=== PATIENT | male | born 1995 | race Caucasian/White ===

== ENCOUNTER 2018-06-22 21:00 | Emergency (ER) | payer BC, OTHER ==
--- NOTE | 2018-06-22 21:30 | ED Physician Documentation ---
PD HPI URI - Stated complaint Stated Complaint: SOA/COUGH - Chief complaint Chief Complaint: Resp - History obtained from History obtained from: Patient - History of Present Illness Timing - onset: How many days ago (3) Timing duration: Days (3) Timing details: Abrupt onset, Still present Associated symptoms: Chills, Productive cough (green/yellow), Dyspnea. No: Fever, Hemoptysis, Chest pain, NVD, Bilateral edema Contributing factors: COPD / asthma (no formal diagnosis but has been treated with Albuterol MDI and FLovent with prior infections and uses Albuterol MDI PRN) . No: Sick contact, Travel, Immunocompromised Similar symptoms before: Diagnosis (states gets bronchitis often and has had pneumonia couple times in the past 5-6 years. Has some stomach cramps and irregular stools at times. No formal gallbladder problems.) Recently seen: Not recently seen Review of Systems Constitutional: reports: Myalgias, Fatigue. denies: Fever, Chills Nose: denies: Rhinorrhea / runny nose, Congestion Throat: reports: Sore throat Cardiac: denies: Chest pain / pressure Respiratory: reports: Dyspnea, Cough, Wheezing GI: denies: Abdominal Pain, Nausea, Vomiting, Diarrhea Skin: denies: Rash, Lesions PD PAST MEDICAL HISTORY - Past Medical History Past Medical History: Yes Respiratory: Asthma, Pneumonia HEENT: Chronic sinusitis - Past Surgical History Past Surgical History: No - Present Medications Home Medications: Ambulatory Orders Medication Instructions Recorded Confirmed Albuterol Sulf [Ventolin Hfa 2 - 3 puffs INH Q4HR PRN #1 inhaler 06/22/18 Inhaler] Benzonatate [Tessalon] 100 mg PO TID PRN #20 capsule 06/22/18 Dexamethasone [Decadron] 4 mg PO DAILY #5 tablet 06/22/18 Doxycycline Monohydrate 100 mg PO BID #14 tablet 06/22/18 - Allergies Allergies/Adverse Reactions: Allergies Allergy/AdvReac Type Severity Reaction Status Date / Time No Known Drug Allergies Allergy Verified 06/22/18 21:08 - Social History Does the pt smoke?: No Smoking Status: Never smoker Does the pt drink ETOH?: Yes Does the pt have substance abuse?: No - Immunizations Immunizations are current?: Yes PD ED PE NORMAL - Vitals Vital signs reviewed: Yes - General General: Alert and oriented X 3, No acute distress, Well developed/nourished - HEENT HEENT: Ears normal, Moist mucous membranes, Pharynx benign - Neck Neck: Supple, no meningeal sign, No adenopathy - Cardiac Cardiac: RRR, No murmur - Respiratory Respiratory: No: Clear bilaterally (no coasrse sounds but does have some en expiratory wheezing diffusely. ) - Abdomen Abdomen: Normal bowel sounds, Soft - Derm Derm: Normal color, Warm and dry, No rash - Extremities Extremities: No edema, No calf tenderness / cord - Neuro Neuro: Alert and oriented X 3, No motor deficit, Normal speech Results - Vitals Vitals: Oxygen O2 Source Room air PD MEDICAL DECISION MAKING - ED course Complexity details: considered differential (symptoms do sound c/w bacterial bronchitis - no URI symptoms generally and cough with green sputum, wheezing, malaise. Has ? asthma and gets bronchitis/pneumonia often. No wheezing nor limitation of activities when well/usually. Some stomach cramps and irregular stools often. But symptoms not necessarily consistent enough to eval for CF or such. ), d/w patient - Sepsis Event Vital Signs: Oxygen O2 Source Room air Departure - Departure Disposition: 01 Home, Self Care Clinical Impression: Acute bronchitis Qualifiers: Bronchitis organism: unspecified organism Qualified Code(s): J20.9 - Acute bronchitis, unspecified Condition: Stable Record reviewed to determine appropriate education?: Yes Instructions: ED Upper Resp Infec Abx Tx Prescriptions: Albuterol Sulf [Ventolin Hfa Inhaler] 2 - 3 puffs INH Q4HR PRN #1 inhaler PRN Reason: Shortness Of Air/Wheezing Benzonatate [Tessalon] 100 mg PO TID PRN #20 capsule PRN Reason: Cough Dexamethasone [Decadron] 4 mg PO DAILY #5 tablet Doxycycline Monohydrate 100 mg PO BID #14 tablet Comments: Drink lots of fluids. Tylenol or ibuprofen if needed for fevers or pains. Use albuterol inhaler 2 puffs 3 puffs 4 times a day to help with breathing and less cough and wheeze. Decadron steroid daily for 5 more days to help reduce bronchial inflammation. Doxycycline antibiotic twice daily for a week for the presumed bacterial infection given your symptoms. Use Tessalon or cough medicine if needed. Recheck if not improving over the next several days to week. The cough itself may persist for couple weeks even after you are feeling better. Discharge Date/Time: 06/22/18 22:26
[2018-06-22] MEDS ORDERED: ALBUTEROL NEB 2.5 MG/3 ML INH STA (21:46)
[2018-06-22] MEDS ORDERED: DEXAMETHASONE 10 MG/ML VIAL PO STA (21:46)
[2018-06-22] MEDS ORDERED: BENZONATATE 100 MG CAPSULE PO STA (21:46)
[2018-06-22] MEDS ORDERED: DOXYCYCLINE 100 MG TABLET PO STA (21:46)
[2018-06-22 22:28] VITALS: BP 135/73
== END 2018-06-22 22:26 | disposition home or self-care (01) ==
LOC: ED 21:00
DX: J20.9 Acute bronchitis, unspecified (principal)
CPT/HCPCS: 94640; 94664; 99283; A9270